=== PATIENT | male | born 1990 | race Caucasian/White ===

== ENCOUNTER 2017-06-07 07:51 | Emergency (ER) | payer OTHER ==
[~2017-06-07] VITALS: Ht 185.4 cm; Wt 68.9 kg
[2017-06-07 08:01] VITALS: BP 124/69
[2017-06-07 08:32] VITALS: BP 124/69
== END 2017-06-07 08:32 | disposition home or self-care (01) ==
LOC: MED 07:51
DX: S61.215A Laceration without foreign body of left ring finger without damage to nail, initial encounter (principal); W45.8XXA Other foreign body or object entering through skin, initial encounter; Y93.89 Activity, other specified; Y92.89 Other specified places as the place of occurrence of the external cause; Y99.8 Other external cause status
CPT/HCPCS: 12001; 90471; 90715; 99283

== ENCOUNTER 2017-07-01 16:45 | Emergency (ER) | payer OTHER ==
[~2017-07-01] VITALS: Ht 185.4 cm; Wt 70.8 kg
[2017-07-01 16:47] VITALS: BP 125/71
--- NOTE | 2017-07-01 16:52 | NUR ---
PT AMBULATES TO BED B
--- NOTE | 2017-07-01 16:59 | NUR ---
26Y/M BIB SELF FOR WOUND CHECK ON HIS LEFT 4TH FINGER. ER MADE AWARE OF PT STATUS.
[2017-07-01 17:25] VITALS: BP 125/71
== END 2017-07-01 17:24 | disposition home or self-care (01) ==
LOC: MED 16:45
DX: S61.215D Laceration without foreign body of left ring finger without damage to nail, subsequent encounter (principal); X58.XXXD Exposure to other specified factors, subsequent encounter
CPT/HCPCS: 99283

== ENCOUNTER 2017-07-02 15:31 | Emergency (ER) | payer OTHER ==
[~2017-07-02] VITALS: Ht 185.4 cm; Wt 73.5 kg
[2017-07-02 15:41] VITALS: BP 112/71
--- NOTE | 2017-07-02 15:47 | NUR ---
PATIENT PRESENTS TO ED WITH LEFT HAND 4TH FINGER LACERATION WOUND CHECK. PT STATES WOUND APPEARS SWOLLEN AND IS DRAINING. DENIES N/V/D; SKIN IS PINK/WARM/DRY; AAOX4 WITH EVEN AND STEADY GAIT; LUNGS CLEAR BL; HR EVEN AND REGULAR; PT DENIES ANY FEVER, CP, SOB, OR COUGH AT THIS TIME; PATIENT STATES PAIN OF 1/10 AT THIS TIME; VSS; PATIENT POSITIONED FOR COMFORT; PATIENT SITTING UP IN CHAIR. ER MD MADE AWARE OF PT STATUS.
[2017-07-02 16:58] VITALS: BP 112/71
--- NOTE | 2017-07-02 16:58 | NUR ---
Patient discharged with v/s stable. Written and verbal after care instructions given and explained. Patient verbalized understanding. Ambulatory with steady gait. All questions addressed prior to discharge. Advised to follow up with PMD.
== END 2017-07-02 16:58 | disposition home or self-care (01) ==
LOC: MED 15:31
DX: S61.215D Laceration without foreign body of left ring finger without damage to nail, subsequent encounter (principal); X58.XXXD Exposure to other specified factors, subsequent encounter
CPT/HCPCS: 99282